=== PATIENT | male | born 1965 | race Caucasian/White ===

== ENCOUNTER 2018-09-15 15:02 | Emergency (ER) | payer BC ==
[2018-09-15] MEDS ORDERED: Bacitracin Oint 1 GM U/D Packet TOP ONE (15:25)
[2018-09-15] MEDS ORDERED: Diphtheria,Pertussis(Acell),Tetanus Vaccine 0.5 ML Syringe IM ONE (15:25)
--- NOTE | 2018-09-15 15:29 | EDM.PDOC ---
ED HPI GENERAL MEDICAL PROBLEM - General Chief Complaint: Bite:Animal, Insect Stated Complaint: LEFT THUMB BIT FROM A CAT Time Seen by Provider: 09/15/18 15:07 Source of Information: Reports: Patient History Limitations: Reports: No Limitations - History of Present Illness INITIAL COMMENTS - FREE TEXT/NARRATIVE: HISTORY AND PHYSICAL: History of present illness: Patient is a 53-year-old male who presents to the emergency room after having a cat bite to his left thumb. He states that he brought home and abandoned cat over the past several days and has been caring for it in his home. Yesterday he was bathing the cat when it bit his left palmar surface at the base of the thumb. Today he has some redness and tenderness to the area. The cat is unknown on its immunizations status. He denies any fever, chills, chest pain, shortness of breath or cough. Denies any GI or symptoms. He is unsure of his tetanus update Review of systems: As per history of present illness and below otherwise all systems reviewed and negative. Past medical history: As per history of present illness and as reviewed below otherwise noncontributory. Surgical history: As per history of present illness and as reviewed below otherwise noncontributory. Social history: See social history for further information Family history: As per history of present illness and as reviewed below otherwise noncontributory. Physical exam: General: Well-developed and well-nourished 53-year-old male. Alert and oriented. Nontoxic appearing and in no acute distress. HEENT: Atraumatic, normocephalic, pupils equal and reactive bilaterally, negative for conjunctival pallor or scleral icterus, mucous membranes moist, trachea midline. No drooling or trismus noted. No meningeal signs. No hot potato voice noted. Lungs: Clear to auscultation, breath sounds equal bilaterally, chest nontender. Heart: S1S2, regular rate and rhythm without overt murmur Abdomen: Soft, nondistended, nontender. Negative for masses. Pelvis: Stable nontender. Genitourinary: Deferred. Rectal: Deferred. Skin: Puncture wound noted to the base of the left thumb with mild erythema surrounding the site. Otherwise skin is intact, warm, dry. No lesions or rashes noted. Extremities: Atraumatic, negative for cords or calf pain. Neurovascular unremarkable. Neuro: Awake, alert, oriented. Cranial nerves II through XII unremarkable. Cerebellum unremarkable. Motor and sensory unremarkable throughout. Exam nonfocal. Notes: Patient's blood pressure is elevated at today's visit. He declines wanting this further addressed her evaluated. States he thinks he is "just high strung from worrying about this cat bite". Discussed in great length the option of initiating the rabies vaccines. He declines at this time. Wound care was done here We'll update his tetanus and prescribe antibiotics. Supportive care measures were reviewed and discussed. Voices understanding and is agreeable to plan of care. Denies any further questions or concerns at this time. Diagnostics: None Therapeutics: Wound care, bacitracin, T.dap Prescription: Augmentin Impression: Animal bite, left hand Plan: 1. Wash the area gently with soap and water at least twice daily. Keep the skin clean and dry. Continue to monitor for signs of improvement. 2. Take the antibiotic as directed. 3. Follow-up with your primary care provider as we discussed. Return to the ED as needed and as discussed. Definitive disposition and diagnosis as appropriate pending reevaluation and review of above. Duration: Day(s): - Related Data Allergies Allergy/AdvReac Type Severity Reaction Status Date / Time WHEAT Allergy Other Uncoded 09/15/18 15:12 Home Meds: Home Meds . [No Known Home Meds] 09/15/18 [History] Past Medical History HEENT History: Reports: Impaired Vision, Other (See Below) Other HEENT History: wears glasses Cardiovascular History: Reports: None Respiratory History: Reports: None Gastrointestinal History: Reports: None Genitourinary History: Reports: Other (See Below) Other Genitourinary History: hydrocelle Musculoskeletal History: Reports: None Neurological History: Reports: None Psychiatric History: Reports: None Endocrine/Metabolic History: Reports: None Hematologic History: Reports: None Immunologic History: Reports: None Oncologic (Cancer) History: Reports: None Dermatologic History: Reports: Eczema, Other (See Below) Other Dermatologic History: hydration decifecntr eczema - Infectious Disease History Infectious Disease History: Reports: Chicken Pox - Past Surgical History Head Surgeries/Procedures: Reports: None HEENT Surgical History: Reports: None Cardiovascular Surgical History: Reports: None Respiratory Surgical History: Reports: None GI Surgical History: Reports: None Male Surgical History: Reports: Vasectomy Endocrine Surgical History: Reports: None Neurological Surgical History: Reports: None Musculoskeletal Surgical History: Reports: None Oncologic Surgical History: Reports: None Dermatological Surgical History: Reports: None Social & Family History - Family History Family Medical History: Noncontributory - Tobacco Use Smoking Status *Q: Never Smoker Second Hand Smoke Exposure: No - Caffeine Use Caffeine Use: Reports: Coffee, Soda - Recreational Drug Use Recreational Drug Use: No ED ROS GENERAL - Review of Systems Review Of Systems: ROS reveals no pertinent complaints other than HPI. ED EXAM, ANIMAL BITE - Physical Exam Exam: See Below (See dictation) Course - Vital Signs Last Recorded V/S: Last Vital Signs Temp 97.2 F 09/15/18 15:08 Pulse 75 09/15/18 15:08 Resp 18 09/15/18 15:08 BP 148/115 H 09/15/18 15:08 Pulse Ox 95 09/15/18 15:08 - Orders/Labs/Meds Orders: Active Orders 24 hr Category Date Time Status Communication Order [RC] STAT Care 09/15/18 15:25 Ordered Vaccines to be Administered [RC] PER UNIT ROUTINE Care 09/15/18 15:26 Ordered Meds: Medications Discontinued Medications Generic Name Dose Route Start Last Admin Trade Name Freq PRN Reason Stop Dose Admin Bacitracin 1 dose 09/15/18 15:25 09/15/18 15:38 Bacitracin Oint 1 Gm TOP 09/15/18 15:26 1 dose ONETIME ONE Administration Diphtheria/Tetanus/Acell Pertussis 0.5 ml 09/15/18 15:25 09/15/18 15:37 Adacel IM 09/15/18 15:26 0.5 ml .ONCE ONE Administration Departure - Departure Time of Disposition: 15:29 Disposition: Home, Self-Care 01 Clinical Impression: Animal bite of hand Qualifiers: Encounter type: initial encounter Laterality: left Qualified Code(s): S61.452A - Open bite of left hand, initial encounter - Discharge Information Instructions: Animal Bite, [id number] Referrals: PCP,None [Primary Care Provider] - Forms: ED Department Discharge Additional Instructions: The following information is given to patients seen in the emergency department who are being discharged to home. This information is to outline your options for follow-up care. We provide all patients seen in our emergency department with a follow-up referral. The need for follow-up, as well as the timing and circumstances, are variable depending upon the specifics of your emergency department visit. If you don't have a primary care physician on staff, we will provide you with a referral. We always advise you to contact your personal physician following an emergency department visit to inform them of the circumstance of the visit and for follow-up with them and/or the need for any referrals to a consulting specialist. The emergency department will also refer you to a specialist when appropriate. This referral assures that you have the opportunity for follow-up care with a specialist. All of these measure are taken in an effort to provide you with optimal care, which includes your follow-up. Under all circumstances we always encourage you to contact your private physician who remains a resource for coordinating your care. When calling for follow-up care, please make the office aware that this follow-up is from your recent emergency room visit. If for any reason you are refused follow-up, please contact the [facility] Emergency Department at and asked to speak to the emergency department charge nurse. [facility] [address] [place] [address] [place] [address] 1. Wash the area gently with soap and water at least twice daily. Keep the skin clean and dry. Continue to monitor for signs of improvement. 2. Take the antibiotic as directed. 3. Follow-up with your primary care provider as we discussed. Return to the ED as needed and as discussed. - My Orders Last 24 Hours: My Active Orders 09/15/18 15:25 Communication Order [RC] STAT 09/15/18 15:26 Vaccines to be Administered [RC] PER UNIT ROUTINE - Assessment/Plan Last 24 Hours: My Active Orders 09/15/18 15:25 Communication Order [RC] STAT 09/15/18 15:26 Vaccines to be Administered [RC] PER UNIT ROUTINE
== END 2018-09-15 15:47 | disposition home or self-care (01) ==
LOC: MW.ED 15:02
DX: S61.452A Open bite of left hand, initial encounter (principal); Z23 Encounter for immunization; Z91.018 Allergy to other foods; W55.01XA Bitten by cat, initial encounter
CPT/HCPCS: 90471; 90715; 99283

== ENCOUNTER 2023-08-22 00:19 | Emergency (ER) | payer BC, OTHER ==
[2023-08-22 00:51] LABS: BASOPHILS ABSOLUTE AUTO 0.03 K/uL (0.00-0.20); BASOPHILS PERCENT AUTO 0.5 % (0.0-1.0); EOSINOPHILS ABSOLUTE AUTO 0.14 K/uL (0.00-0.45); EOSINOPHILS PERCENT AUTO 2.4 % (0.0-6.0); HEMOGLOBIN 14.3 g/dL (14.0-18.0); IMMATURE GRAN ABSOLUTE AUTO 0.02 K/uL (0.00-0.05); IMMATURE GRAN PERCENT AUTO 0.3 % (0.0-0.4); LYMPHOCYTES ABSOLUTE AUTO 1.83 K/uL (1.00-4.80); LYMPHOCYTES PERCENT AUTO 31.7 % (24.0-44.0); MEAN CORPUSCULAR HEMOGLOBIN 30.4 pg (28.0-32.0); MEAN CORPUSCULAR HGB CONC 35.8 g/dL (32.0-36.0); MEAN CORPUSCULAR VOLUME 85.1 fL (83.0-99.0); MEAN PLATELET VOLUME 9.4 fL (9.4-12.4); MONOCYTES ABSOLUTE AUTO 0.64 K/uL (0.00-0.80); MONOCYTES PERCENT AUTO 11.1 % (0.0-8.0); NEUTROPHILS ABSOLUTE AUTO 3.11 K/uL (1.80-7.70); PLATELET COUNT,PLT 222 K/uL (150-400); WHITE BLOOD CELL COUNT,WBC 5.77 K/uL (3.9-11.3)
[2023-08-22 01:18] LABS: A/G RATIO 1.3 (0.9-1.6); ALBUMIN 3.6 g/dL (3.4-5.0); BILIRUBIN TOTAL 0.5 mg/dL (0.2-1.0); CARBON DIOXIDE,CO2 27.2 mmol/L (21.0-32.0); EST CRCL DRUG DOSING (CG) 92.11 mL/min; POTASSIUM,K 3.5 mmol/L (3.5-5.1); PROTEIN TOTAL,TP 6.3 g/dL (6.4-8.2)
== END 2023-08-22 01:50 | disposition home or self-care (01) ==
LOC: MW.ED 00:19
DX: R07.9 Chest pain, unspecified (principal); I10 Essential (primary) hypertension; F17.290 Nicotine dependence, other tobacco product, uncomplicated; Z91.018 Allergy to other foods; Z79.899 Other long term (current) drug therapy
CPT/HCPCS: 36415; 71045; 71045-26; 80053; 83880; 84484; 85025; 85379; 93010; 99282; 99285

== ENCOUNTER 2024-06-21 17:09 | Emergency (ER) | payer OTHER ==
[2024-06-21] MEDS: Ibuprofen 600 MG Tab PO ONE (18:47)
[2024-06-21] MEDS: Lidocaine 4% 1 each Patch TOP STA (20:39)
== END 2024-06-21 20:31 | disposition home or self-care (01) ==
LOC: MW.ED 17:09
DX: M25.512 Pain in left shoulder (principal); I10 Essential (primary) hypertension; Z91.018 Allergy to other foods; Z79.899 Other long term (current) drug therapy; Z75.8 Other problems related to medical facilities and other health care
CPT/HCPCS: 73030; 99283; A9270